=== PATIENT | female | born 1965 | race African-American/Black ===

== ENCOUNTER 2018-12-27 12:49 | Day surgery (SDC) | payer OTHER ==
[2018-12-24 15:43] VITALS: BMI 31.8
[2018-12-27] MEDS ORDERED: MIDAZOLAM HCL 2 MG/2 ML SINGLE DOSE VIAL ONE ×4 (14:58→15:12)
[2018-12-27] MEDS ORDERED: fentaNYL CITRATE 250 MCG/5 ML VIAL ONE (15:13)
--- NOTE | 2018-12-27 15:45 | OP ---
Operative Note - Note: Operative Date: 12/27/18 Pre-Operative Diagnosis: Left renal stone Operation: Left ESWL Findings: 2 mm mid pole left Renal stone Post-Operative Diagnosis: Same as Pre-op Surgeon: Clifford Gurrola Anesthesia: Fractional Estimated Blood Loss (mls): 0 Operative Report Dictated: Yes
[2018-12-27 16:15] VITALS: TEMP 97.5
[2018-12-27 18:08] VITALS: BP 122/79; PULSE 53
--- NOTE | 2018-12-27 20:55 | OP ---
DATE OF OPERATION: 12/27/2018 PREOPERATIVE DIAGNOSIS: Left renal stone. POSTOPERATIVE DIAGNOSIS: Left renal stone. PROCEDURE: Left extracorporeal shock wave lithotripsy. ATTENDING: Tam Butler MD ANESTHESIA: Fractional. DESCRIPTION OF PROCEDURE: The patient was brought to the operating room and placed in the supine position on the operating table. Ultrasonography and fluoroscopy were performed. A 6-mm left midpole stone was identified. Anesthesia and preoperative antibiotics were then administered. Shockwave lithotripsy was then started at 2500 impulses, 17 Joules of power administered to the stone. Excellent fragmentation of the stone was noted under real-time ultrasonography and fluoroscopy. No complications were noted. DISPOSITION: Patient was to the recovery room. TAM BUTLER M.D. [id number]
== END 2018-12-27 17:00 | disposition home or self-care (01) ==
LOC: JASU-SURG 12:49
PROVIDERS: ATTEND Urology
PROC: 0TF4XZZ Fragmentation in Left Kidney Pelvis, External Approach (ICD-10-PCS; principal; 2018-12-27 14:00)
DX: N20.0 Calculus of kidney (principal)